=== PATIENT | female | born 1945 | race Caucasian/White ===

== ENCOUNTER 2022-01-03 10:03 | Outpatient (CLI) | payer MEDICARE ==
[2022-01-03 14:40] LABS: ESTIMATED AVERAGE GLUCOSE 148 mg/dL (70-100); HEMOGLOBIN A1c% 6.8 % (4.27-6.07)
[2022-01-03 15:01] LABS: BASOPHILS % (AUTO) 0.4 %; EOSINOPHILS # (AUTO) 0.1 10^3/uL (0.0-0.7); EOSINOPHILS % (AUTO) 1.8 %; HCT - HEMATOCRIT 38.4 % (37.0-47.0); HGB - HEMOGLOBIN 12.7 g/dL (12.0-16.0); LYMPHOCYTES # (AUTO) 1.6 10^3/uL (1.5-3.5); LYMPHOCYTES % (AUTO) 28.5 %; MEAN CORPUSCULAR HEMOGLOBIN 28.3 pg (27.0-31.0); MEAN CORPUSCULAR HGB CONC 33.1 g/dL (32.0-36.0); MEAN CORPUSCULAR VOLUME 85.5 fL (81.0-99.0); MONOCYTES # (AUTO) 0.6 10^3/uL (0.0-1.0); MONOCYTES % (AUTO) 10.4 %; NEUTROPHILS # (AUTO) 3.3 10^3/uL (1.5-6.6); NEUTROPHILS % (AUTO) 58.5 %; PLT - PLATELET COUNT 231 10^3/uL (130-450); RED BLOOD COUNT 4.49 10^6/uL (4.20-5.40); RED CELL DISTRIBUTION WIDTH 13.6 % (12.0-15.0); WHITE BLOOD COUNT 5.6 x10^3/uL (4.8-10.8)
[2022-01-03 16:06] LABS: ALBUMIN 4.5 g/dL (3.2-5.5); ALBUMIN/GLOBULIN RATIO 1.5 (1.0-2.2); ALKALINE PHOSPHATASE 49 IU/L (42-121); ALT ALANINE AMINOTRANSFERASE 13 IU/L (10-60); AST ASPARTATE AMINOTRANSFERASE 17 IU/L (10-42); BILIRUBIN,TOTAL 0.6 mg/dL (0.2-1.0); BUN - BLOOD UREA NITROGEN 15 mg/dL (6-20); CALCIUM 9.5 mg/dL (8.5-10.3); CARBON DIOXIDE - CO2 28 mmol/L (21-32); CHLORIDE 102 mmol/L (101-111); CHOL/HDL RATIO 2.5 (<4.4); CHOLESTEROL 177 mg/dL; CREATININE 0.8 mg/dL (0.4-1.0); GFR - MDRD 70 (>89); GLUCOSE 137 mg/dL (70-100); HDL CHOLESTEROL 71 mg/dL; LDL CHOLESTEROL,CALCULATED 81 mg/dL; LDL/HDL RATIO 1.1 (<4.4); POTASSIUM 4.1 mmol/L (3.5-5.0); SODIUM 141 mmol/L (135-145); TOTAL PROTEIN 7.5 g/dL (6.7-8.2); TRIGLYCERIDES 127 mg/dL; VLDL CHOLESTEROL 25 mg/dL
[2022-01-03 16:07] LABS: THYROID STIMULATING HORMONE 1.46 uIU/mL (0.34-5.60)
== END 2022-01-03 10:04 | disposition home or self-care (01) ==
LOC: LAB.S 10:03
PROVIDERS: ATTEND Internal Medicine
DX: E11.9 Type 2 diabetes mellitus without complications (principal); E55.9 Vitamin D deficiency, unspecified; E03.9 Hypothyroidism, unspecified
CPT/HCPCS: 36415; 80053; 80061; 82306; 83036; 83721; 84443; 85025

== ENCOUNTER 2023-08-10 17:19 | Emergency (ER) | payer MEDICARE ==
[2023-08-10 17:37] VITALS: O2SAT 99
[2023-08-10 18:10] LABS: BILIRUBIN,URINE NEGATIVE (NEGATIVE); GLUCOSE, URINE (UA) NEGATIVE (NEGATIVE); KETONES,URINE (UA) NEGATIVE (NEGATIVE); LEUKOCYTE ESTERASE, URINE NEGATIVE (NEGATIVE); NITRITE,URINE NEGATIVE (NEGATIVE); OCCULT BLOOD,URINE LARGE (NEGATIVE); PH,URINE 5.5 PH (5.0-7.5); PROTEIN,URINE 30 mg/dL (NEGATIVE); UROBILINOGEN,URINE 1 (NORMAL) E.U./dL (NORMAL)
[2023-08-10 18:13] LABS: CLARITY,URINE CLOUDY (CLEAR)
[2023-08-10 18:22] LABS: WBC,URINE 0-3 /HPF (0-5)
[2023-08-10 18:23] LABS: AMORPHOUS SEDIMENT,UR Few /LPF; BACTERIA,URINE Few /HPF (None Seen); CRYSTALS,URINE 11-25 Uric Acid /LPF; RBC,URINE TNTC /HPF (0-5); SQUAMOUS EPITHELIAL CELL,UR RARE Squamous (<= Few)
[2023-08-10] MEDS ORDERED: MORPHINE 2 MG/ML CARPUJECT IVP STA (18:32)
[2023-08-10 18:43] LABS: BASOPHILS % (AUTO) 0.2 %; EOSINOPHILS # (AUTO) 0.1 10^3/uL (0.0-0.7); EOSINOPHILS % (AUTO) 0.7 %; HCT - HEMATOCRIT 39.2 % (37.0-47.0); LYMPHOCYTES # (AUTO) 1.8 10^3/uL (1.5-3.5); LYMPHOCYTES % (AUTO) 14.9 %; MEAN CORPUSCULAR HEMOGLOBIN 28.3 pg (27.0-31.0); MEAN CORPUSCULAR HGB CONC 33.2 g/dL (32.0-36.0); MEAN CORPUSCULAR VOLUME 85.2 fL (81.0-99.0); MEAN PLATELET VOLUME 9.7 fL (7.9-10.8); MONOCYTES # (AUTO) 0.9 10^3/uL (0.0-1.0); NEUTROPHILS # (AUTO) 9.4 10^3/uL (1.5-6.6); NEUTROPHILS % (AUTO) 76.7 %; PLT - PLATELET COUNT 221 10^3/uL (130-450); RED CELL DISTRIBUTION WIDTH 13.5 % (12.0-15.0); WHITE BLOOD COUNT 12.2 x10^3/uL (4.8-10.8)
[2023-08-10 18:57] LABS: ALBUMIN 4.7 g/dL (3.2-5.5); ALBUMIN/GLOBULIN RATIO 1.9 (1.0-2.2); ALKALINE PHOSPHATASE 58 IU/L (42-121); ALT ALANINE AMINOTRANSFERASE 12 IU/L (10-60); AST ASPARTATE AMINOTRANSFERASE 14 IU/L (10-42); BILIRUBIN,TOTAL 0.4 mg/dL (0.2-1.0); BUN - BLOOD UREA NITROGEN 24 mg/dL (6-20); CARBON DIOXIDE - CO2 26 mmol/L (21-32); CHLORIDE 104 mmol/L (101-111); CREATININE 1.1 mg/dL (0.6-1.3); GFR - MDRD 48 (>89); GLUCOSE 147 mg/dL (74-104); POTASSIUM 3.9 mmol/L (3.5-4.5); SODIUM 139 mmol/L (135-145); TOTAL PROTEIN 7.2 g/dL (6.4-8.9)
[2023-08-10 19:01] LABS: LIPASE < 10 U/L (11-82)
--- NOTE | 2023-08-10 20:31 | CT Report ---
PROCEDURE: ABDOMEN/PELVIS W INDICATIONS: RLQ abd pain CONTRAST: 100mL Omni 300 TECHNIQUE: After the administration of intravenous contrast, 5 mm thick sections acquired from the diaphragms to the symphysis. 5 mm thick coronal and sagittal reformats were acquired. For radiation dose reducti on, the following was used: automated exposure control, adjustment of mA and/or kV according to lizeth ent size. COMPARISON: None FINDINGS: Image quality: Excellent. Lung bases and heart: Unremarkable. Liver: No solid mass. Gallbladder and biliary tree: Spleen: No splenomegaly. Pancreas: No pancreatic ductal dilation. Adrenals: No adrenal nodule. Kidneys and ureters: There is moderate right-sided hydroureteronephrosis secondary to a 5 mm obstruct ing stone in the distal right ureter visualized a short distance from the right ureterovesicular junc tion. No perinephric stranding or periureteral stranding. No left-sided hydronephrosis. Nonobstructin g 2 mm left renal stone. No renal cystic lesion which requires follow up. No solid mass. Bowel and peritoneum: No bowel distension. No pathologic free fluid. Diverticulosis without evidence of diverticulitis. Normal appendix. Lymph nodes: No central or retroperitoneal adenopathy. Vessels: No infrarenal aortic aneurysm. Atherosclerosis. PELVIS Reproductive organs: Unremarkable. Bladder: No abnormal wall thickening, accounting for underdistension. Pelvic lymph nodes: No pelvic adenopathy by size criteria. Bones: No aggressive osseous abnormality. Other: No significant ventral or inguinal hernia. IMPRESSION: 1. Moderate right hydroureteronephrosis secondary to obstructing 5 mm distal right ureteral stone kashmir ntified a short distance from the right ureterovesicular junction. 2. Nonobstructing 2 mm left renal stone. 3. Colonic diverticulosis without acute diverticulitis. 4. Normal appendix. 5. Atherosclerosis. Reviewed by: Ray Tinoco MD on 08/10/2023 8:29 PM PDT Approved by: Ray Tinoco MD on 08/10/2023 8:29 PM PDT Station ID: [id number]
[2023-08-10] MEDS ORDERED: KETOROLAC 30 MG/ML VIAL IVP STA (21:00)
[2023-08-10] MEDS ORDERED: HYDROcod/ACET 5/325 Prepack 4 PO STA (21:00)
--- NOTE | 2023-08-10 21:01 | ED Physician Documentation ---
PD HPI ABD PAIN - Stated complaint Stated Complaint: GI/ABD PX - Chief complaint Chief Complaint: Abd Pain - History obtained from History obtained from: Patient, Family - History of Present Illness Timing - duration: Days Timing - details: Gradual onset Pain level max: 8 Pain level now: 8 Associated symptoms: No: Fever, Nausea, Vomiting, Hematemesis, Diarrhea, Constipation, Melena, Hematochezia, Dysuria, Hematuria - Additional information Additional information: 78-year-old female presents to the emergency department with right-sided abdominal pain. This been ongoing for the past 2 to 3 days. Took Dulcolax without relief. Worse with movement, nothing makes it better. No fevers. No chills. No nausea no vomiting. She states she did feel constipated and took a Dulcolax and since that time had diarrhea. No recent antibiotics. No recent travel. No vaginal bleeding or discharge. No new medications. Has not had similar symptoms previously. Review of Systems Constitutional: denies: Fever, Chills Nose: denies: Rhinorrhea / runny nose, Congestion Throat: denies: Sore throat Cardiac: denies: Chest pain / pressure, Palpitations Respiratory: denies: Dyspnea, Cough, Wheezing GI: denies: Hematemesis, Bloody / black stool : denies: Dysuria, Frequency, Hesitancy PD PAST MEDICAL HISTORY - Past Medical History Past Medical History: Yes Cardiovascular: High cholesterol Endocrine/Autoimmune: Type 2 diabetes GALLERY OR MUSEUM GUIDE: Breast cancer - Past Surgical History Past Surgical History: Yes Ortho: Spine surgery /GALLERY OR MUSEUM GUIDE: section, Mastectomy, Breast reduction, Other - Present Medications Home Medications: Ambulatory Orders Medication Instructions Recorded Confirmed HYDROcod/ACETAM 5/325 [[place] 5/325] 1 - 2 ea PO Q6H PRN #14 tablet 08/10/23 Levothyroxine [Synthroid] 75 mcg PO QDAC 08/10/23 08/10/23 Lovastatin [Altoprev] 40 mg PO QPM 08/10/23 08/10/23 Meloxicam [Mobic] 7.5 mg PO BID PRN #20 tablet 08/10/23 Ondansetron Odt [Zofran] 4 mg TL Q6H PRN #10 tablet 08/10/23 metFORMIN [Glucophage] 500 mg PO TID 08/10/23 08/10/23 - Allergies Allergies/Adverse Reactions: Allergies Allergy/AdvReac Type Severity Reaction Status Date / Time Sulfa (Sulfonamide Allergy Hives Verified 08/10/23 18:52 Antibiotics) diazepam [From Valium] AdvReac Unknown Verified 08/10/23 18:52 - Social History Does the pt smoke?: No Smoking Status: Never smoker Does the pt drink ETOH?: No Does the pt have substance abuse?: No PD ED PE NORMAL - Vitals Vital signs reviewed: Yes - General General: Alert and oriented X 3, No acute distress - HEENT HEENT: PERRL, Moist mucous membranes - Neck Neck: Supple, no meningeal sign - Cardiac Cardiac: RRR, Strong equal pulses - Respiratory Respiratory: No respiratory distress, Clear bilaterally - Abdomen Abdomen: Soft, Non distended, Other (Tender to palpation right lower quadrant. No peritoneal signs. Negative heeltap. Negative guarding.) - Back Back: No spinal TTP, Other (Mild right CVAT. No left-sided tenderness.) - Derm Derm: Warm and dry - Extremities Extremities: No edema, No calf tenderness / cord - Neuro Neuro: Alert and oriented X 3 - Psych Psych: Normal mood, Normal affect Results - Vitals Vitals: Vital Signs - 24 hr 08/10/23 08/10/23 08/10/23 17:25 19:46 21:14 Temperature 37.0 C Heart Rate 73 71 61 Respiratory 18 18 18 Rate Blood Pressure 185/75 H 157/85 H 164/89 H O2 Saturation 99 99 99 Oxygen O2 Source Room air - Labs Labs: Laboratory Tests 08/10/23 08/10/23 08/10/23 17:45 18:39 18:39 WBC 12.2 H RBC 4.60 Hgb 13.0 Hct 39.2 MCV 85.2 MCH 28.3 MCHC 33.2 RDW 13.5 Plt Count 221 MPV 9.7 Neut # (Auto) 9.4 H Lymph # (Auto) 1.8 Owen # (Auto) 0.9 Eos # (Auto) 0.1 Baso # (Auto) 0.0 Absolute Nucleated RBC 0.00 Nucleated RBC % 0.0 Sodium 139 Potassium 3.9 Chloride 104 Carbon Dioxide 26 Anion Gap 9.0 BUN 24 H Creatinine 1.1 Estimated GFR (MDRD) 48 L Glucose 147 H Calcium 10.0 Total Bilirubin 0.4 AST 14 ALT 12 Alkaline Phosphatase 58 Total Protein 7.2 Albumin 4.7 Globulin 2.5 Albumin/Globulin Ratio 1.9 Lipase < 10 L Urine Color YELLOW Urine Clarity CLOUDY Urine pH 5.5 Ur Specific [place] 1.025 Urine Protein 30 H Urine Glucose (UA) NEGATIVE Urine Ketones NEGATIVE Urine Occult Blood LARGE H Urine Nitrite NEGATIVE Urine Bilirubin NEGATIVE Urine Urobilinogen 1 (NORMAL) Ur Leukocyte Esterase NEGATIVE Urine RBC TNTC H Urine WBC 0-3 Ur Squamous Epith Cells RARE Squamous Urine Crystals 11-25 Uric Acid Amorphous Sediment Few Urine Bacteria Few Ur Microscopic Review INDICATED Urine Culture Comments NOT INDICATED - Rads (name of study) CT abdomen pelvis Relevant Findings:: Final report received, See rad report PD Medical Decision Making - ED course Complexity details: reviewed results, re-evaluated patient, considered differential, d/w patient, d/w family ED course: 78-year-old female with right-sided abdominal pain. CT scan shows a 5 mm right ureteral stone at the UVJ. Pain well controlled in the emergency department. No evidence of infection. No fevers. No evidence of sepsis. We will place on pain medication for home and have her follow-up with her PCP for further care. No history of ureteral stones in the past. Normal appendix. Tolerating p.o. without difficulty. Patient counseled regarding signs and symptoms for which I believe and urgent re-evaluation would be necessary. Patient with good understanding of and agreement to plan and is comfortable going home at this time This document was made in part using voice recognition software. While efforts are made to proofread this document, sound alike and grammatical errors may occur. Departure - Departure Disposition: 01 Home, Self Care Clinical Impression: Ureteral stone with hydronephrosis Condition: Good Instructions: ED Stone Renal W Colic Follow-Up: Tiffanie Alejandre PA-C [Primary Care Provider] - Within 1 week Wale Forrest MD [Provider Admit Priv/Credential] - Prescriptions: Meloxicam [Mobic] 7.5 mg PO BID PRN #20 tablet PRN Reason: Pain HYDROcod/ACETAM 5/325 [[place] 5/325] 1 - 2 ea PO Q6H PRN #14 tablet PRN Reason: Pain Ondansetron Odt [Zofran] 4 mg TL Q6H PRN #10 tablet PRN Reason: Nausea / Vomiting Comments: Your [facility] sent to [facility] in [place]. You have a 5 mm right- sided ureteral stone that is at the bladder. You also have a nonobstructing 2 mm left renal stone. Please make sure you drink plenty of water. Please follow-up with your doctor for further care. Return if you develop fevers, uncontrolled pain or other new or worrisome symptoms. I am prescribing a short course of narcotic pain medication for you. These are potentially dangerous and addictive medications that should be used carefully. These medications may constipate you. Take an unuf-ewr-bodscha stool softener (docusate) twice daily with plenty of water while taking these medications. If you go 24 hours without a bowel movement, take [id number] miralax, per package instructions. Do not drink or drive while taking these medications. If you received narcotic or sedating medications while in the emergency department, do not drive for 24 hours. Store this medication in a safe, secure place and out of reach of children. It is a violation of federal law to give or sell this medication to another person or to use in a manner other than prescribed. The ED will not refill narcotic prescriptions, including prescriptions lost or stolen. To dispose of unwanted medications: 1. [facility] [address] [facility] in [place] has a medication drop box. They accept prescription medications (in pill form) Monday through Monday 9:00 a.m. to 5:00 p.m. 2. [facility] accepts prescription medications (in pill form only) for disposal year round. Call for more information. 3. Contact the [facility] for the next [facility] sponsored prescription drug collection event. , [phone], or [phone]; PROCEDURE: ABDOMEN/PELVIS W INDICATIONS: RLQ abd pain CONTRAST: 100mL Omni 300 TECHNIQUE: After the administration of intravenous contrast, 5 mm thick sections acquired from the diaphragms to the symphysis. 5 mm thick coronal and sagittal reformats were acquired. For radiation dose reduction, the following was used: automated exposure control, adjustment of mA and/or kV according to patient size. COMPARISON: None FINDINGS: Image quality: Excellent. Lung bases and heart: Unremarkable. Liver: No solid mass. Gallbladder and biliary tree: Spleen: No splenomegaly. Pancreas: No pancreatic ductal dilation. Adrenals: No adrenal nodule. Kidneys and ureters: There is moderate right-sided hydroureteronephrosis secondary to a 5 mm obstructing stone in the distal right ureter visualized a short distance from the right ureterovesicular junction. No perinephric stranding or periureteral stranding. No left-sided hydronephrosis. Nonobstructing 2 mm left renal stone. No renal cystic lesion which requires follow up. No solid mass. Bowel and peritoneum: No bowel distension. No pathologic free fluid. Diverticulosis without evidence of diverticulitis. Normal appendix. Lymph nodes: No central or retroperitoneal adenopathy. Vessels: No infrarenal aortic aneurysm. Atherosclerosis. PELVIS Reproductive organs: Unremarkable. Bladder: No abnormal wall thickening, accounting for underdistension. Pelvic lymph nodes: No pelvic adenopathy by size criteria. Bones: No aggressive osseous abnormality. Other: No significant ventral or inguinal hernia. IMPRESSION: 1. Moderate right hydroureteronephrosis secondary to obstructing 5 mm distal right ureteral stone identified a short distance from the right ureterovesicular junction. 2. Nonobstructing 2 mm left renal stone. 3. Colonic diverticulosis without acute diverticulitis. 4. Normal appendix. 5. Atherosclerosis. Forms: PCP List Discharge Date/Time: 08/10/23 21:22
[2023-08-10 21:22] VITALS: BP 164/89
[2023-08-10] MEDS ORDERED: iohexoL-300 100 ML VIAL IVP ONE (23:52)
== END 2023-08-10 21:22 | disposition home or self-care (01) ==
LOC: ED 17:19
DX: N13.2 Hydronephrosis with renal and ureteral calculous obstruction (principal); E11.9 Type 2 diabetes mellitus without complications; E78.00 Pure hypercholesterolemia, unspecified; Z79.899 Other long term (current) drug therapy; Z79.84 Long term (current) use of oral hypoglycemic drugs
CPT/HCPCS: 36415; 74177; 80053; 81001; 83690; 85025; 96374; 96375; 99283; 99284; Q9967; 81003; 87086

== ENCOUNTER 2023-09-20 09:34 | Outpatient (CLI) | payer MEDICARE ==
[2023-09-20 14:46] LABS: BASOPHILS % (AUTO) 0.5 %; EOSINOPHILS # (AUTO) 0.1 10^3/uL (0.0-0.7); EOSINOPHILS % (AUTO) 2.5 %; HCT - HEMATOCRIT 37.7 % (37.0-47.0); LYMPHOCYTES # (AUTO) 1.8 10^3/uL (1.5-3.5); LYMPHOCYTES % (AUTO) 32.6 %; MEAN CORPUSCULAR HEMOGLOBIN 28.4 pg (27.0-31.0); MEAN CORPUSCULAR HGB CONC 31.8 g/dL (32.0-36.0); MEAN CORPUSCULAR VOLUME 89.1 fL (81.0-99.0); MEAN PLATELET VOLUME 9.9 fL (7.9-10.8); MONOCYTES # (AUTO) 0.7 10^3/uL (0.0-1.0); MONOCYTES % (AUTO) 11.7 %; NEUTROPHILS % (AUTO) 52.5 %; PLT - PLATELET COUNT 247 10^3/uL (130-450); RED BLOOD COUNT 4.23 10^6/uL (4.20-5.40); RED CELL DISTRIBUTION WIDTH 13.6 % (12.0-15.0); WHITE BLOOD COUNT 5.7 x10^3/uL (4.8-10.8)
[2023-09-20 15:30] LABS: ALBUMIN 4.4 g/dL (3.2-5.5); ALBUMIN/GLOBULIN RATIO 1.8 (1.0-2.2); ALKALINE PHOSPHATASE 52 IU/L (42-121); ALT ALANINE AMINOTRANSFERASE 13 IU/L (10-60); AST ASPARTATE AMINOTRANSFERASE 16 IU/L (10-42); BILIRUBIN,TOTAL 0.4 mg/dL (0.2-1.0); BUN - BLOOD UREA NITROGEN 17 mg/dL (6-20); CALCIUM 9.9 mg/dL (8.5-10.3); CARBON DIOXIDE - CO2 28 mmol/L (21-32); CHLORIDE 104 mmol/L (101-111); CHOL/HDL RATIO 2.4 (<4.4); CHOLESTEROL 169 mg/dL; CREATININE 0.9 mg/dL (0.6-1.3); GFR - MDRD 60 (>89); GLUCOSE 131 mg/dL (74-104); HDL CHOLESTEROL 70 mg/dL; LDL CHOLESTEROL,CALCULATED 78 mg/dL; LDL/HDL RATIO 1.1 (<4.4); POTASSIUM 4.2 mmol/L (3.5-4.5); SODIUM 138 mmol/L (135-145); TOTAL PROTEIN 6.9 g/dL (6.4-8.9); TRIGLYCERIDES 107 mg/dL (48-352); VLDL CHOLESTEROL 21 mg/dL
[2023-09-20 15:37] LABS: CREATININE,URINE 42.2 mg/dL
[2023-09-20 15:43] LABS: THYROID STIMULATING HORMONE 0.95 uIU/mL (0.34-5.60)
[2023-09-20 16:00] LABS: MICROALBUMIN,URINE < 0.7 mg/dL
[2023-09-20 19:32] LABS: ESTIMATED AVERAGE GLUCOSE 137 mg/dL (70-100); HEMOGLOBIN A1c% 6.4 % (4.27-6.07)
== END 2023-09-20 09:35 | disposition home or self-care (01) ==
LOC: LAB.S 09:34
PROVIDERS: ATTEND Registered Nurse
DX: E11.9 Type 2 diabetes mellitus without complications (principal); Z13.228 Encounter for screening for other metabolic disorders; Z13.220 Encounter for screening for lipoid disorders; Z13.29 Encounter for screening for other suspected endocrine disorder; Z13.0 Encounter for screening for diseases of the blood and blood-forming organs and certain disorders involving the immune mechanism
CPT/HCPCS: 36415; 80053; 80061; 82043; 82570; 83036; 83721; 84443; 85025

== ENCOUNTER 2024-03-13 09:35 | Outpatient (CLI) | payer MEDICARE ==
[2024-03-13 14:33] LABS: BASOPHILS % (AUTO) 0.5 %; EOSINOPHILS # (AUTO) 0.1 10^3/uL (0.0-0.7); EOSINOPHILS % (AUTO) 1.7 %; HCT - HEMATOCRIT 39.1 % (37.0-47.0); HGB - HEMOGLOBIN 12.8 g/dL (12.0-16.0); LYMPHOCYTES % (AUTO) 33.9 %; MEAN CORPUSCULAR HEMOGLOBIN 28.1 pg (27.0-31.0); MEAN CORPUSCULAR HGB CONC 32.7 g/dL (32.0-36.0); MEAN CORPUSCULAR VOLUME 85.9 fL (81.0-99.0); MONOCYTES # (AUTO) 0.6 10^3/uL (0.0-1.0); MONOCYTES % (AUTO) 10.9 %; NEUTROPHILS # (AUTO) 3.1 10^3/uL (1.5-6.6); NEUTROPHILS % (AUTO) 52.8 %; PLT - PLATELET COUNT 220 10^3/uL (130-450); RED BLOOD COUNT 4.55 10^6/uL (4.20-5.40); WHITE BLOOD COUNT 5.8 x10^3/uL (4.8-10.8)
[2024-03-13 15:02] LABS: ALBUMIN 4.3 g/dL (3.2-5.5); ALBUMIN/GLOBULIN RATIO 1.5 (1.0-2.2); ALKALINE PHOSPHATASE 42 IU/L (42-121); ALT ALANINE AMINOTRANSFERASE 10 IU/L (10-60); AST ASPARTATE AMINOTRANSFERASE 16 IU/L (10-42); BILIRUBIN,TOTAL 0.5 mg/dL (0.2-1.0); BUN - BLOOD UREA NITROGEN 17 mg/dL (6-20); CALCIUM 10.3 mg/dL (8.5-10.3); CARBON DIOXIDE - CO2 25 mmol/L (21-32); CHLORIDE 103 mmol/L (101-111); CHOL/HDL RATIO 2.4 (<4.4); CHOLESTEROL 163 mg/dL; GFR - MDRD 53 (>89); GLUCOSE 131 mg/dL (74-104); HDL CHOLESTEROL 68 mg/dL; LDL CHOLESTEROL,CALCULATED 68 mg/dL; POTASSIUM 4.8 mmol/L (3.5-4.5); SODIUM 137 mmol/L (135-145); TOTAL PROTEIN 7.1 g/dL (6.4-8.9); TRIGLYCERIDES 136 mg/dL (48-352); VLDL CHOLESTEROL 27 mg/dL
[2024-03-13 15:22] LABS: CREATININE,URINE 54.9 mg/dL
[2024-03-13 15:25] LABS: MICROALBUMIN,URINE < 0.7 mg/dL
[2024-03-13 15:43] LABS: THYROID STIMULATING HORMONE 1.36 uIU/mL (0.34-5.60)
[2024-03-13 20:31] LABS: ESTIMATED AVERAGE GLUCOSE 146 mg/dL (70-100); HEMOGLOBIN A1c% 6.7 % (4.27-6.07)
== END 2024-03-13 09:36 | disposition home or self-care (01) ==
LOC: LAB.S 09:35
PROVIDERS: ATTEND Registered Nurse
DX: E11.9 Type 2 diabetes mellitus without complications (principal); Z13.228 Encounter for screening for other metabolic disorders; Z13.220 Encounter for screening for lipoid disorders; Z13.29 Encounter for screening for other suspected endocrine disorder; Z13.0 Encounter for screening for diseases of the blood and blood-forming organs and certain disorders involving the immune mechanism
CPT/HCPCS: 36415; 80053; 80061; 82043; 82570; 83036; 83721; 84443; 85025

== ENCOUNTER 2024-04-08 13:43 | Outpatient (CLI) | payer MEDICARE ==
--- NOTE | 2024-04-08 16:23 | DEXA Report ---
PROCEDURE: Dexa Spine and/or Hip INDICATIONS: POST MENOPAUSAL TECHNIQUE: Dual energy x-ray absorptiometry (DXA) was performed on a ActivePath System. Regions measur ed are the AP Spine, femoral neck, and if needed forearm. COMPARISON: None FINDINGS: Lumbar Spine: Bone Mineral Density: 1.255 g/cm/cm,T score: 0.6. Left Femoral Neck: Bone Mineral Density: 1.002 g/cm/cm, T score: -0.3. Left Hip: Bone Mineral Density: 0.988 g/cm/cm,T score: -0.2. Left Forearm: (T score greater or equal to -1.0: NORMAL) (T score from -1.1 to -2.4: OSTEOPENIA) (T score less than or equal to -2.5 to: OSTEOPOROSIS) Impression: By WHO criteria, this patient has normal bone mineral density. Patients with diagnosis of osteoporosis or osteopenia should have regular bone mineral density assess ment. For those eligible for Medicare, routine testing is allowed once every 2 years. Testing frequ ency can be increased for patients who have rapidly progressing disease or for those who are receivin g medical therapy to restore bone mass. Reviewed by: Hannah Tyler MD on 04/08/2024 4:21 PM PDT Approved by: Hannah Tyler MD on 04/08/2024 4:21 PM PDT Station ID: [id number]
== END 2024-04-08 13:44 | disposition home or self-care (01) ==
LOC: DI 13:43
PROVIDERS: ATTEND Registered Nurse
DX: Z78.0 Asymptomatic menopausal state (principal)